=== PATIENT | female | born 1990 | race Caucasian/White ===

== ENCOUNTER 2024-06-22 12:17 | Emergency (ER) | payer OTHER, SELFPAY ==
[2024-06-22 12:25] VITALS: TEMP 97.8
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
[2024-06-22] MEDS ORDERED: DUONEB 0.5-3 MG/3 ml Neb IH ONE (13:08)
[2024-06-22] MEDS: DUONEB 0.5-3 MG/3 ml Neb IH ONE (13:14)
[2024-06-22 13:17] VITALS: RESP 18
--- NOTE | 2024-06-22 13:21 | XRAY ---
Indication: Short of breath. Comparison: 2014 Portable chest demonstrates normal heart, lungs, and bony thorax.
[2024-06-22] MEDS ORDERED: Sterile H2O 10 ml IJ ONE (13:26)
[2024-06-22] MEDS ORDERED: solu-MEDROL ONE (13:26)
[2024-06-22] MEDS: solu-MEDROL 125 MG, Sterile H2O 10 ml 2 ML IV ONE (13:30)
[2024-06-22 13:45] VITALS: BP 121/80; PULSE 76
[2024-06-22 13:54] VITALS: O2SAT 98
== END 2024-06-22 14:11 | disposition home or self-care (01) ==
LOC: ED 12:17
DX: J98.01 Acute bronchospasm (principal); Z79.52 Long term (current) use of systemic steroids; Z79.899 Other long term (current) drug therapy
CPT/HCPCS: 71045; 94640; 96374; 99283; J2919; A9270-GY

== ENCOUNTER 2024-08-10 19:58 | Emergency (ER) | payer OTHER ==
[2024-08-10 20:46] VITALS: RESP 18; TEMP 97.9; O2SAT 98
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
[2024-08-10 22:09] VITALS: BP 129/76; PULSE 74
--- NOTE | 2024-08-11 08:50 | XRAY ---
Indication: Pain following fall. Comparison: None 3 view left shoulder obtained. No bony, articular, or soft tissue abnormalities.
== END 2024-08-10 23:05 | disposition home or self-care (01) ==
LOC: ED 19:58
DX: M25.512 Pain in left shoulder (principal); Z79.899 Other long term (current) drug therapy
CPT/HCPCS: 73030; 99283; L3650